=== PATIENT | female | born 1950 | race Caucasian/White ===

== ENCOUNTER → 2025-04-16 10:17 | Outpatient (REF) | payer MEDICARE, OTHER, SELFPAY ==
[2025-04-17 06:10] LABS: FSH 41.1 mIU/ml
[2025-04-17 06:24] LABS: TSH 1.82 uIU/ml (0.47-4.68)
[2025-04-17 07:25] LABS: Vitamin B12 919 pg/ml (239-931)
[2025-04-18 14:03] LABS: Total T3 (Sendout) 93 ng/dL (80-200)
[2025-04-19 01:47] LABS: Copper, Serum 116.7 ug/dL (80.0-155.0)
[2025-04-19 02:52] LABS: IGF-1 Z Score Calculation 0.6
== END ==
LOC: CLAB 10:17
PROVIDERS: ATTENDING PHYSICIAN Student in an Organized Health Care Education/Training Program
DX: G95.9 Disease of spinal cord, unspecified (principal); Z79.899 Other long term (current) drug therapy
CPT/HCPCS: 36415; 82024; 82525; 82607; 83001; 83002; 83921; 84146; 84305; 84439; 84443; 84480; 84630; 87389

== ENCOUNTER → 2025-05-06 10:30 | Outpatient (REF) | payer MEDICARE, OTHER, SELFPAY ==
[2025-05-06 18:32] LABS: Urine Character Cloudy (Clear)
[2025-05-06 18:52] LABS: Urine Squamous Cell >30 /LPF (Few)
[2025-05-06 18:53] LABS: Urine Red Blood Cell 0-2 /HPF (0-2)
== END ==
LOC: OLABPV 10:30
PROVIDERS: ATTENDING PHYSICIAN Obstetrics & Gynecology
DX: R39.9 Unspecified symptoms and signs involving the genitourinary system (principal)
CPT/HCPCS: 81003; 81015; 87077; 87086

== ENCOUNTER → 2025-06-02 16:12 | Outpatient (REF) | payer MEDICARE, OTHER, SELFPAY ==
[2025-06-02 17:09] LABS: Urine Character Slightly Cloudy (Clear)
== END ==
LOC: OLABPV 16:12
DX: R39.9 Unspecified symptoms and signs involving the genitourinary system (principal)
CPT/HCPCS: 81003

== ENCOUNTER → 2025-06-24 08:41 | Outpatient (REF) | payer MEDICARE, OTHER, SELFPAY | LOC: RST 08:41 | PROVIDERS: ATTENDING PHYSICIAN Student in an Organized Health Care Education/Training Program; FAMILY PHYSICIAN Family Medicine | DX: R13.19 Other dysphagia (principal) | CPT/HCPCS: 74230; 92611 ==